=== PATIENT | female | born 1995 | race Two or more races ===

== ENCOUNTER 2022-03-22 20:21 | Emergency (ER) | payer OTHER ==
[~2022-03-22] VITALS: Ht 152.4 cm; Wt 59.0 kg
[2022-03-22] MEDS ORDERED: DOXYCYCLINE HY100 M2 PO (23:38)
== END 2022-03-23 02:13 | disposition home or self-care (01) ==
LOC: ER 20:21
DX: N89.8 Other specified noninflammatory disorders of vagina (principal)